=== PATIENT | female | born 1990 | race Caucasian/White ===

== ENCOUNTER 2022-04-20 11:56 | Emergency (ER) | payer BC ==
[2022-04-20] MEDS ORDERED: Sodium Chloride 0.9% 10 ML Syringe FLUSH PRN (12:56)
[2022-04-20] MEDS ORDERED: Sodium Chloride 0.9% 1,000 ML IV STA (13:23)
[2022-04-20 14:30] LABS: ESTIMATED GFR 123 mL/min (>60)
[2022-04-20] MEDS ORDERED: Magnesium Sulfate/Water 2 GM in Premix Bag 1 BAG IV ONE (14:40)
[2022-04-20] MEDS ORDERED: Magnesium Oxide 400 MG Tab PO ONE (16:57)
== END 2022-04-20 18:10 | disposition home or self-care (01) ==
LOC: JD.ED 11:56
DX: R55 Syncope and collapse (principal); E83.42 Hypomagnesemia; I10 Essential (primary) hypertension; Z79.899 Other long term (current) drug therapy
CPT/HCPCS: 36415; 70450; 70450-26; 80053; 80307; 83605; 83735; 84703; 85025; 86140; 93005; 96361; 96365; 96366; 99284-25; J3475; J3490; J7030